=== PATIENT | female | born 1980 | race Caucasian/White ===

== ENCOUNTER → 2016-12-31 | Outpatient (REF) ==
[~2016-12-31] MED LIST: ASPIRIN 81M81 MG/TA2 PO; CODEINE SULFATE30 MG PO; DIAZEPAM5 MG PO; LASIX20 MG PO; POTASSIUM20 MEQ PO
== END ==
LOC: WSOH 14:45
DX: Z02.89 Encounter for other administrative examinations (principal)

== ENCOUNTER 2017-08-28 22:55 | Emergency (ER) | payer OTHER ==
[~2017-08-28] VITALS: Ht 160 cm; Wt 56.8 kg
[2017-08-28 22:55] VITALS: TEMP 97.3
[~2017-08-28 22:55] MED LIST changes: +CODEINE SULFATE15 MG PO; -CODEINE SULFATE30 MG PO; +K-TAB20 PO; +LASIX 40MG TABL40 MG PO; -LASIX20 MG PO; -POTASSIUM20 MEQ PO
[2017-08-28 23:12] LABS: BASO # 0.1 (0.0-0.2); BASO % 0.5 % (0.0-2.0); EOS % 0.4 % (0-4.0); GRAN # 8.9 (1.4-6.5); GRAN % 80.4 % (42.2-75.2); HEMATOCRIT 44.9 % (37.0-47.0); HEMOGLOBIN 14.5 g/dl (12.5-16.0); LYMPH # 1.2 (1.2-3.4); LYMPH % 11.1 % (20.0-51.0); MEAN CELL VOLUME 86 fl (80.0-100.0); MEAN CORPUSCULAR HEMOGLOBIN 28 pg (27.0-31.0); MEAN CORPUSCULAR HGB CONC 32 g/dl (33.0-37.0); MEAN PLATELET VOLUME 10.6 fl (7.4-10.4); MONO # 0.8 (0.1-0.6); MONO % 7.1 % (1.7-9.3); PLATELET COUNT 175 K/mm3 (130-400); RED BLOOD COUNT 5.22 M/mm3 (4.10-5.30)
[2017-08-28] MEDS ORDERED: COUMADIN4 MG PO (23:19)
[2017-08-28] MEDS ORDERED: COUMADIN 3MG3 MG/TAB PO (23:19)
[2017-08-28] MEDS ORDERED: TOPROL XL 25MG25 MG PO (23:20)
[2017-08-28 23:22] LABS: ALBUMIN 5.6 gm/dL (3.5-5.0); BILIRUBIN,TOTAL 0.6 mg/dL (0.0-1.0); CALCIUM 9.7 mg/dL (8.4-10.2); CREATININE, serum 0.85 mg/dL (0.52-1.25); POTASSIUM 3.7 mmol/L (3.4-5.0); TOTAL PROTEIN 8.6 gm/dL (6.4-8.2)
[2017-08-28 23:35] LABS: TROPONIN-I 0.242 ng/mL (0.000-0.034)
[2017-08-29 00:03] LABS: PROTHROMBIN TIME 23.8 SECONDS (9.7-12.8)
[2017-08-29 01:08] VITALS: BP 98/70; PULSE 101
[2017-08-29] MEDS ORDERED: ALDACTONE 25MG25 M1 PO (10:59)
== END 2017-08-29 01:18 | disposition home or self-care (01) ==
LOC: COL.ER 22:55
PROVIDERS: Emergency Medicine
DX: I47.1 Supraventricular tachycardia (principal); Q24.9 Congenital malformation of heart, unspecified; R74.9 Abnormal serum enzyme level, unspecified; Z98.890 Other specified postprocedural states; Z79.01 Long term (current) use of anticoagulants
CPT/HCPCS: J7030

== ENCOUNTER 2017-08-29 10:44 | Emergency (ER) | payer OTHER ==
[~2017-08-29] VITALS: Ht 160 cm; Wt 56.8 kg
[~2017-08-29 10:44] MED LIST changes: +COUMADIN 3MG3 MG/TAB PO; +COUMADIN4 MG PO; +TOPROL XL 25MG25 MG PO
[2017-08-29 10:48] VITALS: TEMP 98.8
[2017-08-29] MEDS ORDERED: ALDACTONE 25MG25 M1 PO (10:59)
[2017-08-29 11:04] LABS: BASO % 0.5 % (0.0-2.0); EOS # 0.1 (0.0-0.7); EOS % 0.6 % (0-4.0); GRAN # 7.3 (1.4-6.5); GRAN % 82.5 % (42.2-75.2); HEMATOCRIT 40.3 % (37.0-47.0); HEMOGLOBIN 12.9 g/dl (12.5-16.0); LYMPH # 0.7 (1.2-3.4); LYMPH % 7.9 % (20.0-51.0); MEAN CELL VOLUME 85 fl (80.0-100.0); MEAN CORPUSCULAR HEMOGLOBIN 27 pg (27.0-31.0); MEAN CORPUSCULAR HGB CONC 32 g/dl (33.0-37.0); MONO # 0.7 (0.1-0.6); MONO % 7.9 % (1.7-9.3); PLATELET COUNT 145 K/mm3 (130-400); RED BLOOD COUNT 4.76 M/mm3 (4.10-5.30); REDCELL DISTRIBUTION WIDTH-CV 15.9 % (11.5-14.5)
[2017-08-29 11:11] LABS: INR 2.3 (0.8-3.0); PROTHROMBIN TIME 26.6 SECONDS (9.7-12.8)
[2017-08-29 11:14] LABS: PARTIAL THROMBOPLASTIN TIME 41.9 SECONDS (26.0-37.0)
[2017-08-29 11:16] LABS: ALBUMIN 4.3 gm/dL (3.5-5.0); BILIRUBIN,TOTAL 0.8 mg/dL (0.0-1.0); CALCIUM 9.3 mg/dL (8.4-10.2); CREATININE, serum 0.88 mg/dL (0.52-1.25); POTASSIUM 4.1 mmol/L (3.4-5.0)
[2017-08-29 11:30] LABS: TROPONIN-I 1.04 ng/mL (0.000-0.034)
[2017-08-29 12:45] VITALS: BP 100/75; PULSE 94
== END 2017-08-29 12:55 | disposition short-term general hospital (02) ==
LOC: COL.ER 10:44
PROVIDERS: Family Medicine
DX: I47.1 Supraventricular tachycardia (principal); I95.9 Hypotension, unspecified; Z79.01 Long term (current) use of anticoagulants
CPT/HCPCS: J7030; J7050

== ENCOUNTER → 2019-11-24 | Outpatient (CLI) | payer OTHER ==
[~2019-11-24] MED LIST changes: +ALDACTONE 25MG25 M1 PO
[2019-11-24 15:15] LABS: INR 4.8 (0.8-3.0)
[2019-11-24 15:22] LABS: PROTHROMBIN TIME 55.1 SECONDS (9.7-12.8)
== END ==
LOC: COL.LAB 14:48
DX: I48.92 Unspecified atrial flutter (principal)

== ENCOUNTER 2019-11-29 04:12 | Emergency (ER) | payer OTHER ==
[~2019-11-29] VITALS: Ht 160 cm; Wt 59.5 kg
[~2019-11-29 04:12] MED LIST changes: +TYLENOL W/COD1 UDTAB PO
[2019-11-29 04:27] VITALS: TEMP 99.1
[2019-11-29 04:34] LABS: BASO # 0.1 (0.0-0.2); BASO % 0.7 % (0.0-2.0); EOS # 0.1 (0.0-0.7); EOS % 1.6 % (0-4.0); GRAN # 4.9 (1.4-6.5); HEMOGLOBIN 13.4 g/dl (12.5-16.0); LYMPH # 0.6 (1.2-3.4); LYMPH % 8.5 % (20.0-51.0); MEAN CELL VOLUME 88 fl (80.0-100.0); MEAN CORPUSCULAR HEMOGLOBIN 28 pg (27.0-31.0); MEAN CORPUSCULAR HGB CONC 32 g/dl (33.0-37.0); MEAN PLATELET VOLUME 10.1 fl (7.4-10.4); MONO % 15.3 % (1.7-9.3); PLATELET COUNT 206 K/mm3 (130-400); RED BLOOD COUNT 4.79 M/mm3 (4.10-5.30); REDCELL DISTRIBUTION WIDTH-CV 13.8 % (11.5-14.5)
[2019-11-29 04:40] LABS: INR 1.3 (0.8-3.0); PROTHROMBIN TIME 15.1 SECONDS (9.7-12.8)
[2019-11-29 04:41] LABS: ALANINE AMINOTRANSFERASE 10 U/L (4-34); ALBUMIN 4.2 gm/dL (3.5-5.0); ALKALINE PHOSPHATASE 82 U/L (50-136); ANION GAP 11 mmol/L (7-16); AST,SGOT 20 U/L (15-37); BILIRUBIN,TOTAL 1.2 mg/dL (0.0-1.0); BLOOD UREA NITROGEN 10 mg/dL (7-17); CALCIUM 9.3 mg/dL (8.4-10.2); CARBON DIOXIDE 28 mmol/L (22-30); CHLORIDE 96 mmol/L (98-107); CREATININE, serum 0.65 (0.52-1.25); GLUCOSE 105 mg/dL (74-106); MAGNESIUM 1.8 mg/dL (1.6-2.3); POTASSIUM 3.8 mmol/L (3.4-5.0); SODIUM 135 mmol/L (137-145)
[2019-11-29 04:53] LABS: TROPONIN-I < 0.012 ng/mL (0.000-0.035)
[2019-11-29 07:01] VITALS: BP 100/65; PULSE 101
== END 2019-11-29 07:44 | disposition short-term general hospital (02) ==
LOC: COL.ER 04:12
PROVIDERS: Emergency Medicine
DX: I47.1 Supraventricular tachycardia (principal); I48.91 Unspecified atrial fibrillation; Z79.01 Long term (current) use of anticoagulants
CPT/HCPCS: J1650; J3010; J7030

== ENCOUNTER 2019-12-18 10:44 | Emergency (ER) | payer OTHER ==
[~2019-12-18] VITALS: Ht 160 cm; Wt 53.6 kg
[2019-12-18 10:50] VITALS: TEMP 98.3
[2019-12-18 11:24] LABS: BASO % 0.5 % (0.0-2.0); EOS # 0.1 (0.0-0.7); EOS % 0.7 % (0-4.0); GRAN # 6.2 (1.4-6.5); GRAN % 77.7 % (42.2-75.2); HEMATOCRIT 38.2 % (37.0-47.0); HEMOGLOBIN 12.2 g/dl (12.5-16.0); LYMPH # 0.4 (1.2-3.4); LYMPH % 5.5 % (20.0-51.0); MEAN CELL VOLUME 85 fl (80.0-100.0); MEAN CORPUSCULAR HEMOGLOBIN 27 pg (27.0-31.0); MEAN CORPUSCULAR HGB CONC 32 g/dl (33.0-37.0); MEAN PLATELET VOLUME 9.9 fl (7.4-10.4); MONO # 1.2 (0.1-0.6); MONO % 14.6 % (1.7-9.3); PLATELET COUNT 403 K/mm3 (130-400); RED BLOOD COUNT 4.49 M/mm3 (4.10-5.30); REDCELL DISTRIBUTION WIDTH-CV 14.6 % (11.5-14.5)
[2019-12-18 11:33] LABS: ALBUMIN 3.9 gm/dL (3.5-5.0); BILIRUBIN,TOTAL 1.1 mg/dL (0.0-1.0); CALCIUM 9.3 mg/dL (8.4-10.2); CREATININE, serum 0.61 (0.52-1.25); POTASSIUM 3.8 mmol/L (3.4-5.0); TOTAL PROTEIN 7.8 gm/dL (6.4-8.2)
[2019-12-18 11:43] LABS: PROTHROMBIN TIME 102.9 SECONDS (9.7-12.8)
[2019-12-18 13:16] VITALS: BP 102/64; PULSE 102
== END 2019-12-18 13:19 | disposition home or self-care (01) ==
LOC: COL.ER 10:44
PROVIDERS: Emergency Medicine
DX: R10.9 Unspecified abdominal pain (principal); R18.8 Other ascites; R79.1 Abnormal coagulation profile; Z79.01 Long term (current) use of anticoagulants

== ENCOUNTER 2020-04-11 08:10 | Emergency (ER) | payer OTHER ==
[~2020-04-11] VITALS: Ht 160 cm; Wt 49.0 kg
[2020-04-11 08:15] VITALS: TEMP 97.8
[2020-04-11] MEDS ORDERED: ELIQUIS 5MG PO (09:00)
[2020-04-11] MEDS ORDERED: ALDACTONE 100M100 MG PO (09:02)
[2020-04-11] MEDS ORDERED: TIKOSYN0.25 MG PO (09:03)
[2020-04-11] MEDS ORDERED: PERCOCET 325 MG1 TA2 PO (14:18)
[2020-04-11] MEDS ORDERED: PREDNISONE20 MG PO (14:18)
[2020-04-11 15:04] VITALS: BP 97/73; PULSE 101
== END 2020-04-11 15:04 | disposition home or self-care (01) ==
LOC: COL.ER 08:10
DX: M79.605 Pain in left leg (principal); Z86.79 Personal history of other diseases of the circulatory system; Z88.6 Allergy status to analgesic agent; Z79.01 Long term (current) use of anticoagulants
CPT/HCPCS: J1170; J7512

== ENCOUNTER → 2020-04-25 | Outpatient (CLI) | payer OTHER ==
[~2020-04-25] MED LIST changes: +ALDACTONE 100M100 MG PO; +ELIQUIS 5MG PO; +PERCOCET 325 MG1 TA2 PO; +PREDNISONE20 MG PO; +TIKOSYN0.25 MG PO
[2020-04-25 11:10] LABS: HEMATOCRIT 46.6 % (37.0-47.0); HEMOGLOBIN 15.1 g/dl (12.5-16.0); MEAN CELL VOLUME 84 fl (80.0-100.0); MEAN CORPUSCULAR HEMOGLOBIN 27 pg (27.0-31.0); MEAN CORPUSCULAR HGB CONC 32 g/dl (33.0-37.0); MEAN PLATELET VOLUME 10.1 fl (7.4-10.4); PLATELET COUNT 240 K/mm3 (130-400); RED BLOOD COUNT 5.58 M/mm3 (4.10-5.30); REDCELL DISTRIBUTION WIDTH-CV 17.2 % (11.5-14.5)
[2020-04-25 11:17] LABS: CREATININE, serum 0.82 (0.52-1.25); MAGNESIUM 2.3 mg/dL (1.6-2.3); POTASSIUM 4.1 mmol/L (3.4-5.0)
== END ==
LOC: COL.LAB 08:25
DX: Z20.828 Contact with and (suspected) exposure to other viral communicable diseases (principal)

== ENCOUNTER → 2020-06-10 | Outpatient (CLI) | payer OTHER ==
[2020-06-10 12:52] LABS: HEMATOCRIT 46.7 % (37.0-47.0); HEMOGLOBIN 15.2 g/dl (12.5-16.0); MEAN CELL VOLUME 86 fl (80.0-100.0); MEAN CORPUSCULAR HEMOGLOBIN 28 pg (27.0-31.0); MEAN CORPUSCULAR HGB CONC 33 g/dl (33.0-37.0); MEAN PLATELET VOLUME 10.7 fl (7.4-10.4); PLATELET COUNT 205 K/mm3 (130-400); RED BLOOD COUNT 5.41 M/mm3 (4.10-5.30); REDCELL DISTRIBUTION WIDTH-CV 15.7 % (11.5-14.5)
[2020-06-10 13:01] LABS: CALCIUM 9.5 mg/dL (8.4-10.2); CREATININE, serum 0.88 (0.52-1.25); MAGNESIUM 1.8 mg/dL (1.6-2.3); POTASSIUM 3.7 mmol/L (3.4-5.0)
== END ==
LOC: COL.LAB 11:39
DX: I48.91 Unspecified atrial fibrillation (principal); I48.92 Unspecified atrial flutter

== ENCOUNTER → 2020-08-01 | Outpatient (CLI) | payer OTHER | LOC: COL.LAB 19:20 | DX: Z20.822 Contact with and (suspected) exposure to COVID-19 (principal) ==

== ENCOUNTER 2020-09-04 12:09 | Emergency (ER) | payer OTHER ==
[~2020-09-04] VITALS: Ht 160 cm; Wt 46.4 kg
[2020-09-04 12:17] VITALS: TEMP 98
[2020-09-04 12:39] LABS: BASO # 0.1 (0.0-0.2); BASO % 0.6 % (0.0-2.0); EOS # 0.2 (0.0-0.7); GRAN # 6.4 (1.4-6.5); GRAN % 76.7 % (42.2-75.2); HEMATOCRIT 49.2 % (37.0-47.0); HEMOGLOBIN 16.5 g/dl (12.5-16.0); LYMPH # 0.7 (1.2-3.4); LYMPH % 8.4 % (20.0-51.0); MEAN CELL VOLUME 85 fl (80.0-100.0); MEAN CORPUSCULAR HEMOGLOBIN 29 pg (27.0-31.0); MEAN CORPUSCULAR HGB CONC 34 g/dl (33.0-37.0); MEAN PLATELET VOLUME 11.3 fl (7.4-10.4); MONO % 11.7 % (1.7-9.3); PLATELET COUNT 188 K/mm3 (130-400); RED BLOOD COUNT 5.79 M/mm3 (4.10-5.30)
[2020-09-04 12:44] LABS: ALANINE AMINOTRANSFERASE 22 U/L (4-34); ALBUMIN 5.2 gm/dL (3.5-5.0); ALKALINE PHOSPHATASE 91 U/L (50-136); ANION GAP 14 mmol/L (7-16); AST,SGOT 37 U/L (15-37); BLOOD UREA NITROGEN 32 mg/dL (7-17); CALCIUM 10.3 mg/dL (8.4-10.2); CARBON DIOXIDE 32 mmol/L (22-30); CREATININE, serum 1.33 (0.52-1.25); GLUCOSE 113 mg/dL (74-106); LIPASE 35 U/L (23-300); MAGNESIUM 2.2 mg/dL (1.6-2.3); SODIUM 134 mmol/L (137-145); TOTAL PROTEIN 9.6 gm/dL (6.4-8.2)
[2020-09-04 12:46] LABS: CHLORIDE 88 mmol/L (98-107)
[2020-09-04] MEDS ORDERED: PROAMATINE10 MG PO (12:55)
[2020-09-04] MEDS ORDERED: ZAROXOLYN 2.52.5 MG PO (12:55)
[2020-09-04 12:58] LABS: TROPONIN-I < 0.012 ng/mL (0.000-0.035)
[2020-09-04 14:39] VITALS: BP 106/69; PULSE 73
== END 2020-09-04 14:39 | disposition home or self-care (01) ==
LOC: COL.ER 12:09
PROVIDERS: Emergency Medicine
DX: N17.9 Acute kidney failure, unspecified (principal); Z86.718 Personal history of other venous thrombosis and embolism; Z88.6 Allergy status to analgesic agent; Z88.1 Allergy status to other antibiotic agents; Z79.01 Long term (current) use of anticoagulants
CPT/HCPCS: J7030

== ENCOUNTER 2021-04-13 23:40 | Emergency (ER) | payer OTHER ==
[~2021-04-13] VITALS: Ht 160 cm; Wt 53.6 kg
[~2021-04-13 23:40] MED LIST changes: +PROAMATINE10 MG PO; +ZAROXOLYN 2.52.5 MG PO
[2021-04-14 00:06] LABS: BASO # 0.1 K/mm3 (0.0-0.2); BASO % 0.8 % (0.0-2.0); EOS # 0.1 K/mm3 (0.0-0.7); GRAN # 7.5 K/mm3 (1.4-6.5); GRAN % 75.5 % (42.2-75.2); HEMATOCRIT 49.7 % (37.0-47.0); HEMOGLOBIN 17.3 g/dl (12.5-16.0); LYMPH # 0.8 K/mm3 (1.2-3.4); LYMPH % 7.6 % (20.0-51.0); MEAN CELL VOLUME 86 fl (80.0-100.0); MEAN CORPUSCULAR HEMOGLOBIN 30 pg (27.0-31.0); MEAN CORPUSCULAR HGB CONC 35 g/dl (33.0-37.0); MEAN PLATELET VOLUME 10.9 fl (7.4-10.4); MONO # 1.4 K/mm3 (0.1-0.6); MONO % 14.1 % (1.7-9.3); PLATELET COUNT 199 K/mm3 (130-400)
[2021-04-14 00:25] LABS: ALBUMIN 4.9 gm/dL (3.5-5.0); CALCIUM 10.8 mg/dL (8.4-10.2); CREATININE, serum 1.24 mg/dL (0.57-1.11); MAGNESIUM 1.9 mg/dL (1.6-2.6); PHOSPHOROUS 3.6 mg/dL (2.3-4.7); POTASSIUM 4.2 mmol/L (3.5-4.5); TOTAL PROTEIN 9.2 gm/dL (6.2-8.1)
[2021-04-14 00:31] LABS: TROPONIN-I 0.01 ng/mL (0.00-0.033)
[2021-04-14 01:58] VITALS: BP 101/63; PULSE 91; TEMP 98.3
== END 2021-04-14 01:58 | disposition home or self-care (01) ==
LOC: COL.ER 23:40
PROVIDERS: Student in an Organized Health Care Education/Training Program
DX: R25.2 Cramp and spasm (principal); E87.8 Other disorders of electrolyte and fluid balance, not elsewhere classified; E87.1 Hypo-osmolality and hyponatremia; I50.9 Heart failure, unspecified; Z79.01 Long term (current) use of anticoagulants; Z79.899 Other long term (current) drug therapy
CPT/HCPCS: J7040

== ENCOUNTER 2022-03-14 14:44 | Emergency (ER) | payer OTHER ==
[~2022-03-14] VITALS: Ht 157.5 cm; Wt 62.7 kg
[2022-03-14 14:55] VITALS: TEMP 97.1
[2022-03-14 15:24] LABS: BASO # 0.1 K/mm3 (0.0-0.2); BASO % 1.1 % (0.0-2.0); EOS # 0.1 K/mm3 (0.0-0.7); EOS % 2.1 % (0.0-4.0); GRAN # 4.4 K/mm3 (1.4-6.5); GRAN % 69.7 % (42.2-75.2); HEMATOCRIT 46.2 % (37.0-47.0); HEMOGLOBIN 15.5 g/dl (12.5-16.0); LYMPH # 0.7 K/mm3 (1.2-3.4); LYMPH % 10.4 % (20.0-51.0); MEAN CELL VOLUME 81 fl (80.0-100.0); MEAN CORPUSCULAR HEMOGLOBIN 27 pg (27-31); MEAN CORPUSCULAR HGB CONC 34 g/dl (33.0-37.0); MEAN PLATELET VOLUME 11.2 fl (7.4-10.4); MONO % 16.1 % (1.7-9.3); PLATELET COUNT 223 K/mm3 (130-400); RED BLOOD COUNT 5.72 M/mm3 (4.10-5.30); REDCELL DISTRIBUTION WIDTH-CV 13.7 % (11.5-14.5)
[2022-03-14 16:13] LABS: ALBUMIN 4.1 gm/dL (3.5-5.0); CALCIUM 9.7 mg/dL (8.4-10.2); CREATININE, serum 1.02 mg/dL (0.57-1.11); MAGNESIUM 2.2 mg/dL (1.6-2.6); TOTAL PROTEIN 7.8 gm/dL (6.2-8.1)
[2022-03-14 16:15] LABS: POTASSIUM 2.3 mmol/L (3.5-4.5)
[2022-03-14 19:45] LABS: CALCIUM 9.2 mg/dL (8.4-10.2); CREATININE, serum 0.88 mg/dL (0.57-1.11)
[2022-03-14 19:51] LABS: POTASSIUM 2.4 mmol/L (3.5-4.5)
[2022-03-14] MEDS ORDERED: K-DUR20 MEQ PO (20:20)
[2022-03-14 20:30] VITALS: BP 109/61; PULSE 58
== END 2022-03-14 20:36 | disposition home or self-care (01) ==
LOC: COL.ER 14:44
PROVIDERS: Emergency Medicine; Nurse Practitioner
DX: E87.6 Hypokalemia (principal)
CPT/HCPCS: J3480; J7030

== ENCOUNTER → 2022-07-17 | Outpatient (CLI) | payer OTHER ==
[~2022-07-17] MED LIST changes: +K-DUR20 MEQ PO
== END ==
LOC: MC.RAD 11:06
DX: Z12.31 Encounter for screening mammogram for malignant neoplasm of breast (principal)

== ENCOUNTER 2023-09-06 13:04 | Emergency (ER) | payer OTHER ==
[~2023-09-06] VITALS: Ht 160 cm; Wt 65.9 kg
[2023-09-06 13:15] VITALS: TEMP 97.8
[2023-09-06 14:20] LABS: COLLECTION METHOD CLEAN CATCH
[2023-09-06 14:25] LABS: PH 5.5 (5.0-8.5); URINE APPEARANCE CLEAR (CLEAR/HAZY); URINE BLOOD NEGATIVE (NEGATIVE); URINE COLOR YELLOW (YELLOW); URINE GLUCOSE NEGATIVE (NEGATIVE); URINE KETONE NEGATIVE (NEGATIVE); URINE NITRATE NEGATIVE (NEGATIVE); URINE PROTEIN(semi-quant) NEGATIVE (NEGATIVE); URINE UROBILINOGEN 0.2 E.U/dL (0.2-1.0)
[2023-09-06 15:02] LABS: HEMATOCRIT 42.5 % (37.0-47.0); HEMOGLOBIN 14.5 g/dl (12.5-16.0); MEAN CELL VOLUME 87 fl (80.0-100.0); MEAN CORPUSCULAR HEMOGLOBIN 30 pg (27-31); MEAN CORPUSCULAR HGB CONC 34 g/dl (33.0-37.0); MEAN PLATELET VOLUME 11.8 fl (7.4-10.4); PLATELET COUNT 268 K/mm3 (130-400); RED BLOOD COUNT 4.86 M/mm3 (4.10-5.30)
[2023-09-06 15:30] LABS: ALBUMIN 4.4 gm/dL (3.5-5.0); CALCIUM 10.5 mg/dL (8.4-10.2); CREATININE, serum 1.17 mg/dL (0.57-1.11); POTASSIUM 4.3 mmol/L (3.5-4.5); TOTAL PROTEIN 8.4 gm/dL (6.2-8.1)
[2023-09-06] MEDS ORDERED: Morphine 4 MG/ML VIAL IV ONE (15:30)
[2023-09-06] MEDS ORDERED: Iohexol 300 - 100 ML VIAL IV ONE (15:41)
[2023-09-06] MEDS ORDERED: NS 100 ML IV SCH (15:42)
[2023-09-06 15:56] LABS: BAND 3 % (0-10); EOSINOPHIL 1 % (0-4); LYMPHOCYTE 4 % (20.0-51.0); METAMYELOCYTE 2 % (0-0); NEUTROPHILS 85 % (42.0-75.2); PLATELET ESTIMATE NORMAL (NORMAL)
[2023-09-06 16:07] LABS: TROPONIN-I 0.041 ng/mL (0.00-0.033)
[2023-09-06] MEDS ORDERED: fentaNYL 50 MCG/ML 2 ML VIAL IV ONE ×2 (16:15→18:45)
[2023-09-06] MEDS ORDERED: Pantoprazole 80 MG in NS 100 ML IV ONE (16:30)
[2023-09-06] MEDS ORDERED: Pantoprazole 40 MG in NS 100 ML IV ONE (16:30)
[2023-09-06] MEDS ORDERED: Octreotide 500 MCG in NS 500 ML IV ONE (16:45)
[2023-09-06] MEDS ORDERED: Octreotide 100 MCG/ML 1 ML VIAL IV ONE (16:45)
[2023-09-06] MEDS ORDERED: cefTRIAXone 1 G in Water For Injection,Sterile 20 ML IV ONE (17:30)
[2023-09-06 18:36] LABS: HEMATOCRIT 35.9 % (37.0-47.0)
[2023-09-06 18:37] LABS: HEMOGLOBIN 12.4 g/dl (12.5-16.0)
[2023-09-06 22:15] VITALS: BP 111/43; PULSE 88
== END 2023-09-07 00:22 | disposition short-term general hospital (02) ==
LOC: COL.ER 13:04
PROVIDERS: Emergency Medicine; Internal Medicine
DX: K92.2 Gastrointestinal hemorrhage, unspecified (principal); Q21.3 Tetralogy of Fallot; I49.3 Ventricular premature depolarization; I45.10 Unspecified right bundle-branch block; Z79.01 Long term (current) use of anticoagulants
CPT/HCPCS: C9113; J0696; J2354-JA; J3010; J7040; Q9967